=== PATIENT | male | born 1985 | race African-American/Black ===

== ENCOUNTER 2018-03-28 03:36 | Emergency (ER) | payer OTHER ==
[~2018-03-28] VITALS: Ht 190.5 cm; Wt 88.0 kg
[2018-03-28] MEDS ORDERED: IBUPROFEN 600MG TABLET PO ONE (04:45)
[2018-03-28 05:41] VITALS: BP 103/55
== END 2018-03-28 06:25 | disposition home or self-care (01) ==
LOC: ER 03:36
DX: S29.8XXA Other specified injuries of thorax, initial encounter (principal); F12.10 Cannabis abuse, uncomplicated; W51.XXXA Accidental striking against or bumped into by another person, initial encounter; Y93.61 Activity, american tackle football; Y92.89 Other specified places as the place of occurrence of the external cause
CPT/HCPCS: 71045; 93005; 99284; Z7610